=== PATIENT | female | born 1965 | race Caucasian/White ===

== ENCOUNTER 2018-05-15 03:39 | Emergency (ER) | payer BC ==
[~2018-05-15] VITALS: Ht 160 cm; Wt 100.8 kg
[2018-05-15 05:28] LABS: CHLORIDE 108 mEq/L (99-109); POTASSIUM 4.3 mEq/L (3.7-5.4); SODIUM 142 mEq/L (136-147)
[2018-05-15 05:30] LABS: GLUCOSE 111 mg/dL (70-99)
[2018-05-15 05:34] LABS: CREATININE 0.8 mg/dL (0.6-1.3); GFR ESTIMATE (CALCULATED) > 59 mL/min/
[2018-05-15 05:35] LABS: UREA NITROGEN (BUN) 14 mg/dL (9-23)
[2018-05-15 05:42] LABS: BASOPHIL (%) 0.7 % (0-1); BASOPHIL COUNT 0.1 K/uL (0-0.1); EOSINOPHIL (%) 3.3 % (0-5); EOSINOPHIL COUNT 0.3 K/uL (0-0.3); HEMATOCRIT 41.6 % (36.0-46.0); HEMOGLOBIN 14.5 G/DL (11.9-15.5); IMMATURE GRANULOCYTE (%) 0.2 % (0.0-0.7); LYMPHOCYTE (%) 19.8 % (15-42); LYMPHOCYTE COUNT 1.7 K/uL (1.0-2.8); MCH 28.8 PG (29.0-34.0); MCHC 34.9 G/DL (30.0-36.0); MCV 82.7 FL (83-99); MONOCYTE (%) 5.9 % (3-12); MONOCYTE COUNT 0.5 K/uL (0-0.8); NEUTROPHIL (%) 70.1 % (45-76); NEUTROPHIL COUNT 5.9 K/uL (1.8-6.4); PLATELET COUNT 246 K/uL (156-360); RBC DIS.WIDTH-CV 12.8 % (11.8-14.6); RBC DIS.WIDTH-SD 38.3 % (39-53); RED BLOOD COUNT 5.03 M/uL (3.80-5.20); WHITE BLOOD COUNT 8.5 K/uL (4.1-10.2)
[2018-05-15] MEDS ORDERED: CLINDAMYCIN HC300 MG PO (06:21)
[2018-05-15] MEDS ORDERED: MOTRIN800 MG PO (06:21)
[2018-05-15 08:41] VITALS: BP 138/89
== END 2018-05-15 08:43 | disposition home or self-care (01) ==
LOC: EME 03:39
PROVIDERS: Emergency Medicine
DX: L03.113 Cellulitis of right upper limb (principal); Z88.0 Allergy status to penicillin
CPT/HCPCS: 73130; 80048; 85025; 87040; 99281; 99285; J3370

== ENCOUNTER 2018-05-15 17:03 | Inpatient (IN) | payer BC ==
[~2018-05-15] VITALS: Ht 160 cm; Wt 101.1 kg
[~2018-05-15 17:03] MED LIST: CLINDAMYCIN HC300 MG PO; MOTRIN800 MG PO
[2018-05-15 19:35] LABS: HEMATOCRIT 39.4 % (36.0-46.0); HEMOGLOBIN 13.7 G/DL (11.9-15.5); MCH 28.8 PG (29.0-34.0); MCHC 34.8 G/DL (30.0-36.0); MCV 82.8 FL (83-99); PLATELET COUNT 215 K/uL (156-360); RBC DIS.WIDTH-CV 12.9 % (11.8-14.6); RBC DIS.WIDTH-SD 39.1 % (39-53); RED BLOOD COUNT 4.76 M/uL (3.80-5.20); WHITE BLOOD COUNT 8.2 K/uL (4.1-10.2)
[2018-05-15 19:48] LABS: ALBUMIN 4.4 g/dL (3.2-4.8); CHLORIDE 107 mEq/L (99-109); POTASSIUM 4.4 mEq/L (3.7-5.4); SODIUM 139 mEq/L (136-147)
[2018-05-15 19:50] LABS: GLUCOSE 100 mg/dL (70-99); TOTAL PROTEIN 7.4 g/dL (6.4-8.3)
[2018-05-15 19:52] LABS: TOTAL BILIRUBIN 0.8 mg/dL (0.0-1.0)
[2018-05-15 19:54] LABS: ALKALINE PHOSPHATASE 91 IU/L (3-129); CREATININE 0.8 mg/dL (0.6-1.3); GFR ESTIMATE (CALCULATED) > 59 mL/min/
[2018-05-15 19:55] LABS: UREA NITROGEN (BUN) 12 mg/dL (9-23)
[2018-05-15 19:56] LABS: AST (GOT) 17 IU/L (2-34)
[2018-05-15 19:57] LABS: ALT (GPT) 18 IU/L (3-49)
[2018-05-16 01:55] VITALS: BP 128/71
[2018-05-16 08:03] VITALS: BP 132/69
[2018-05-16 11:21] VITALS: BP 130/75
[2018-05-16 15:00] VITALS: BP 161/74
[2018-05-16 19:06] VITALS: BP 134/68
[2018-05-17] VITALS: BP 140/74
[2018-05-17 03:35] VITALS: BP 136/72
[2018-05-17 05:56] LABS: BASOPHIL (%) 0.2 % (0-1); EOSINOPHIL (%) 0.2 % (0-5); HEMATOCRIT 40.3 % (36.0-46.0); HEMOGLOBIN 13.6 G/DL (11.9-15.5); IMMATURE GRANULOCYTE (%) 0.4 % (0.0-0.7); LYMPHOCYTE (%) 9.5 % (15-42); LYMPHOCYTE COUNT 0.8 K/uL (1.0-2.8); MCH 28.1 PG (29.0-34.0); MCHC 33.7 G/DL (30.0-36.0); MCV 83.3 FL (83-99); MONOCYTE (%) 1.4 % (3-12); MONOCYTE COUNT 0.1 K/uL (0-0.8); NEUTROPHIL (%) 88.3 % (45-76); NEUTROPHIL COUNT 7.3 K/uL (1.8-6.4); NRBC (%) 0.2 /100 WBC (0-0); PLATELET COUNT 251 K/uL (156-360); RBC DIS.WIDTH-CV 12.7 % (11.8-14.6); RBC DIS.WIDTH-SD 38.5 % (39-53); RED BLOOD COUNT 4.84 M/uL (3.80-5.20); WHITE BLOOD COUNT 8.3 K/uL (4.1-10.2)
[2018-05-17 06:22] LABS: CHLORIDE 107 MEQ/L (99-109); CREATININE 0.6 MG/DL (0.6-1.3); GFR ESTIMATE (CALCULATED) > 59 mL/min/; GLUCOSE 144 mg/dL (70-99); POTASSIUM 4.3 MEQ/L (3.7-5.4); SODIUM 139 MEQ/L (136-147); UREA NITROGEN (BUN) 8 mg/dL (9-23)
[2018-05-17 07:44] VITALS: BP 127/88
[2018-05-17 11:31] VITALS: BP 131/71
[2018-05-17 11:37] LABS: APPEARANCE CLEAR ((CLEAR)); BILIRUBIN NEGATIVE; BLOOD NEGATIVE; COLOR STRAW ((YELLOW)); GLUCOSE (STRIP) NEGATIVE; KETONES NEGATIVE; LEUKOCYTES NEGATIVE; NITRITE NEGATIVE; PROTEIN (STRIP) NEGATIVE; SPECIFIC GRAVITY 1.002 (1.000-1.030); UCUL ADDED? NO; UROBILINOGEN 0.2 MG/DL (0.2-1.0)
[2018-05-17 11:58] LABS: BENZODIAZEPINES, URINE SCREEN Negative (200 ng/mL)
[2018-05-17] MEDS ORDERED: TRIAMCINOLONE A15 GM TP (13:53)
[2018-05-17] MEDS ORDERED: KEFLEX500 MG PO (13:54)
[2018-05-17] MEDS ORDERED: BENADRYL25 MG PO (13:55)
[2018-05-17] MEDS ORDERED: PREDNISONE10 MG PO (13:56)
[2018-05-17 15:34] VITALS: BP 134/61
== END 2018-05-17 15:36 | disposition home or self-care (01) | DRG 603 ==
LOC: EXP 17:03 → EME 17:03 → 4SOUTH 23:56 → EDOF 23:56 → ENRESERV 23:59 → 4SOUTH 05-16 01:31
PROVIDERS: Hospitalist; Physician Assistant; Physician Assistant Medical
DX: L03.113 Cellulitis of right upper limb (principal); L23.7 Allergic contact dermatitis due to plants, except food; L73.9 Follicular disorder, unspecified; Z88.0 Allergy status to penicillin
CPT/HCPCS: 73130; 73201; 80048; 80053; 80202; 80306 90; 81003; 83605; 85025; 85027; 87040; 93971; 99281; 99285; G0378; J1200; J1885; J2920; J3010; J3370; J7030